=== PATIENT | female | born 1990 | race Caucasian/White ===

== ENCOUNTER 2017-06-29 22:25 | Emergency (ER) | payer MEDICAID ==
--- NOTE | 2017-06-29 22:59 | ED Physician Chart ---
ED Chief Complaint/HPI - Patient Information Date Seen:: 06/29/17 Time Seen:: 22:00 Chief Complaint:: back pain History of Present Illness:: Patient fell about 8 feet from the side [place] the [place] one [place]. She does not remember how she landed. She went to [facility] and apparently received IV fluids. She does not recall if x-rays were taken. Patient complains of pain over cervical, thoracic and lumbar spine. Patient has been constipated for about 1 week. She denies any bladder problems. Allergies:: Allergies Allergy/AdvReac Type Severity Reaction Status Date / Time No Known Allergies Allergy Verified 06/29/17 22:42 Vitals:: Vital Signs - 8 hr 06/29/17 22:25 Temp 98.5 F HR 70 RR 19 BP 105/74 O2 Sat % 98 ED Review of Systems - Review of Systems General/Constitutional: No fever, No chills Skin: No skin lesions Head: No headache Eyes: No loss of vision ENT: No earache Neck: Neck pain Cardio Vascular: No chest pain, No palpitations Pulmonary: No SOB GI: No nausea, No vomiting G/U: No dysuria Musculoskeletal: Bone or joint pain, Back pain, Muscle pain Endocrine: No polyuria, No polydipsia Psychiatric: No prior psych history Hematopoietic: No bruising Allergic/Immuno: No urticaria Neurological: No syncope ED Past Medical History - Past Medical History Past Medical History: Asthma/COPD Family History: Diabetes Melitus Social History: Smoker, No Alcohol, No Drug Use Surgical History: , other (3 sections) Psychiatricy History: None Medication: Reviewed ED Physical Exam - Physical Examination General/Constitutional: Well-developed, well-nourished, Alert Other Gen/Cons comments:: Mild distress Head: Atraumatic Eyes: Lids, conjuctiva normal, PERRL Skin: Nl inspection, No rash, No skin lesions, No ecchymosis ENMT: External ears, nose nl Neck: No JVD Other Neck comments:: 85 of forward flexion of the neck Respiratory: Nl effort/Exclusion, Clear to Auscultation, No Wheeze/Rhonchi/Rales Cardio Vascular: RRR, No murmur, gallop, rubs, NL S1 S2 GI: No tenderness/rebounding/guarding, No organomegaly, No hernia, Normal BS's, Nondistended, No mass/bruits, No McBurney tenderness : No CVA tenderness Extremities: No tenderness or effusion Neuro/Psych: Alert/oriented, No focal deficits Other Misc comments:: Tenderness of the entire spine without deformity; straight leg raising is 90 bilaterally; deep tendon reflexes knees and ankles 1.5/4; strong equal hand grasp ED Labs/Radiology/EKG Results - Lab Results Results: Laboratory Results - last 24 hr 06/29/17 06/29/17 22:46 22:46 Urine Source RANDOM Urine Color STRAW Urine Clarity CLEAR Urine pH 7.0 Ur Specific Vincent <= 1.005 Urine Protein NEGATIVE Urine Glucose (UA) NEGATIVE Urine Ketones NEGATIVE Urine Blood NEGATIVE Urine Nitrate NEGATIVE Urine Bilirubin NEGATIVE Urine Urobilinogen 0.2 Ur Leukocyte Esterase NEGATIVE Urine RBC NONE SEEN Urine WBC NONE SEEN Ur Epithelial Cells NONE SEEN Urine Bacteria NONE SEEN Urine Test NEGATIVE ED Assessment - Assessment General Assessment: At 0015 patient's sleeping. X-rays not indicated because pain appears to be musculoskeletal ED Septic Shock - . Is Septic Shock (SBP<90, OR Lactate>4 mmol\L) present?: No - <6hrs of presentation: Vital Signs: Vital Signs - 8 hr 06/29/17 22:25 Temp 98.5 F HR 70 RR 19 BP 105/74 O2 Sat % 98 ED Reassessment (Disposition) - Reassessment Reassessment Condition:: Improved - Diagnosis Diagnosis:: Musculoskeletal back pain - Aftercare/Follow up Instructions Aftercare/Follow-Up Instructions:: Refer to Discharge Instructions Medication Prescribed:: Ibuprofen 400 mg #30 to take 1 3 times a day - Patient Disposition Discharge/Transfer:: Home Condition at Disposition:: Stable, Improved
[2017-06-29 23:01] LABS: URINE BILIRUBIN NEGATIVE (NEGATIVE); URINE BLOOD NEGATIVE (NEGATIVE); URINE GLUCOSE (UA) NEGATIVE (NEGATIVE); URINE KETONE NEGATIVE (NEGATIVE); URINE PROTEIN NEGATIVE (NEGATIVE); URINE UROBILINOGEN 0.2 E.U./dL (0.2 - 1.0)
[2017-06-29 23:03] LABS: URINE COLOR STRAW
[2017-06-29 23:05] LABS: URINE BACTERIA NONE SEEN /hpf (NONE SEEN); URINE EPITHELIAL CELLS NONE SEEN /lpf (FEW); URINE RBC NONE SEEN /hpf (0-5); URINE WBC NONE SEEN /hpf (0-5)
== END 2017-06-30 01:05 | disposition home or self-care (01) ==
LOC: ER 22:25
DX: M54.9 Dorsalgia, unspecified (principal); J45.909 Unspecified asthma, uncomplicated; J44.1 Chronic obstructive pulmonary disease with (acute) exacerbation; F17.200 Nicotine dependence, unspecified, uncomplicated
CPT/HCPCS: 99284; 96372; 81001; 81025; J1885; Z7502